=== PATIENT | female | born 1990 | race Hispanic/Latino ===

== ENCOUNTER 2018-11-16 21:28 | Emergency (ER) | payer OTHER | END 2018-11-16 23:31 | disposition home or self-care (01) | LOC: SCSER 21:28 | DX: J18.9 Pneumonia, unspecified organism (principal); D50.9 Iron deficiency anemia, unspecified | CPT/HCPCS: 87804; 99283 ==

== ENCOUNTER 2019-01-24 06:27 | Observation (INO) | payer OTHER ==
[2019-01-24 07:05] LABS: Hemoglobin 6.5 g/dL (12.0-16.0); Mean Corpuscular Hemoglobin 14.1 pg (27.0-31.0); Mean Corpuscular Volume 52.3 fL (78.0-98.0); Mean Platelet Volume 5.6 fL (7.4-10.4); Platelet Count 262 thou/uL (130-400); Red Blood Cell (RBC) Count 4.58 mill/uL (4.20-5.40); White Blood Cell (WBC) Count 7.3 thou/uL (4.8-10.8)
[2019-01-24 07:06] LABS: BHCG - Serum Negative (NEGATIVE); INR-International Normal Ratio 1.1; PTT 28.9 SEC (22.9-36.1); Pregs Control Background? CLEAR/WHITE (CLR/WHITE); Pregs Control Bar Appear? YES (CONTROL BAR); Prothrombin Time 14.3 SEC (12.0-14.7)
[2019-01-24 07:14] LABS: #Basophils 0.1 thou/uL (0.0-0.2); #Eosinphils 0.2 thou/uL (0.0-0.7); #Lymphocytes 1.9 thou/uL (1.20-3.40); #Monocytes 0.5 thou/uL (0.11-0.59); #Neutrophils 4.6 thou/uL (1.40-6.50); %Basophils 1.1 % (0.0-1.0); %Lymphocytes 25.7 % (21.0-51.0); %Monocytes 6.8 % (0.0-10.0); %Neutrophils 63.4 % (42.0-75.0); Elliptocytes MODERATE= 6-15 cells (100X) (0-1/hpf); Hypochromia MARKED = >30 cells (100X) (0-5/hpf); MDiff Complete? YES; Microcytosis MARKED = >30 cells (100X) (0-5/hpf); Ovalocytes SLIGHT = 2-5 cells (100X) (0-1/hpf); Polychromasia SLIGHT = 2-3 cells (100X) (0-2/hpf)
[2019-01-24 07:15] LABS: ALT (SGPT) 14 U/L (8-55); AST (SGOT) 12 U/L (5-34); Albumin 3.7 g/dL (3.5-5.0); Alkaline Phosphatase 60 U/L (40-150); Anion Gap 9 mmol/L (10-20); BUN (Urea Nitrogen) 11 mg/dL (7.0-18.7); Bilirubin, Total 0.5 mg/dL (0.2-1.2); Calc. Creatinine Clearance 0 mL/min (70-130); Calcium 8.4 mg/dL (7.8-10.44); Carbon Dioxide 24 mmol/L (22-29); Chloride 111 mmol/L (98-107); Estimated GFR-MDRD Greater than 90; Globulin 3.4 g/dL (2.4-3.5); Glucose 103 mg/dL (70-105); Potassium 3.7 mmol/L (3.5-5.1); Protein, Total 7.1 g/dL (6.0-8.3); Sodium 140 mmol/L (136-145)
--- NOTE | 2019-01-24 08:42 | RAD ---
FRONTAL RADIOGRAPH CHEST: Date; 01/24/19 COMPARISON: None. HISTORY: Dyspnea and lower extremity swelling. FINDINGS: Mild respiratory motion artifact noted. Midline sternotomy wires are present. Body habitus and portab le technique limit detailed assessment. No pneumothorax, lobar consolidation, or alveolar edema. There is increased density in the right perihilar/suprahilar region which could signify vascular prom inence or could be osseous in nature. PA/lateral imaging of the chest could better evaluate the media stinal contours. IMPRESSION: Limited assessment of the chest demonstrating prominence of the cardiac silhouette and lobulated dens ity in the right perihilar/suprahilar region, for which PA and lateral imaging of the chest is advise d. There is no lobar consolidation or alveolar edema. POS: ROYCE
[2019-01-24 10:26] VITALS: BMI 51.6
[2019-01-24] MEDS ORDERED: diphenhydrAMINE 50 MG CAP PO PRN (10:33)
[2019-01-24] MEDS ORDERED: IRON IVPB SCH (10:45)
[2019-01-24] MEDS ORDERED: SODIUM FERRIC GLUCONATE IVPB SCH (10:45)
[2019-01-24] MEDS ORDERED: SODIUM CHLORIDE 0.9% IVPB SCH (10:45)
--- NOTE | 2019-01-24 11:31 | HP ---
REASON FOR ADMISSION: Anemia, secondary to menorrhagia. HISTORY OF PRESENT ILLNESS: Ms. Woody is a 28-year-old 1, para 0, AB 1, who has a long history of menorrhagia leading to anemia. She presents to the emergency room in [place] complaining of weakness. Upon presentation there, she was found to have a hematocrit of 23.9%, hemoglobin of 6.5. Indices are microcytic, consistent with chronic iron loss including marked hypochromasia and microcytosis and elliptocytosis. Platelets were within normal limits. She is admitted for blood transfusions as well as IV iron therapy and pharmacologic manipulation of menorrhagia. HYPERION ANALYST HISTORY: Miscarriage x1. History of menorrhagia since onset of menses. No history of STDs, on oral contraceptives. 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 PAST SURGICAL HISTORY: D and C, and tetralogy of Fallot repair. ALLERGIES: DENIES. MEDICATIONS: Oral contraceptives. SOCIAL HISTORY: Denies tobacco, alcohol, or drug abuse. FAMILY HISTORY: Noncontributory. REVIEW OF SYSTEMS: Noncontributory. PHYSICAL EXAMINATION: GENERAL: Obese female, in no acute distress. VITAL SIGNS: Temperature 98.5, pulse 76, respirations 20, O2 saturation 98%, and blood pressure 134/92. HEENT: Within normal limits. LUNGS: Clear to auscultation bilaterally. HEART: Regular rate and rhythm. ABDOMEN: Soft and nontender. No rebound or guarding. GENITOURINARY: Vulva without lesions. Vagina, moderate menses. PELVIC: Deferred. EXTREMITIES: Without clubbing, cyanosis, or edema. LABORATORY DATA: The patient had a negative Pap smear with Dr. Fatimah Lam less than 1 month ago. HPV is not noted in the chart. Hematocrit is noted. Blood type is O positive. Antibody negative. RADIOLOGY: Chest x-ray was negative. The patient reports that she has a simple ovarian cyst that is followed by Dr. Lam. She denies pelvic pain at this time and no ultrasound has been done during this hospitalization. IMPRESSION: Menorrhagia, persistent with anemia and iron deficiency secondary to chronic blood loss. PLAN: 1. Transfuse 2 units of PRBCs. 2. IV iron gluconate 500 mg x1. 3. Initiate Lysteda 1300 p.o. t.i.d. 4. Provera 10 mg b.i.d. during hospitalization. 5. Plan for outpatient followup with Dr. Fatimah Lam post discharge. Job ID: [id number] [facility]
[2019-01-24] MEDS ORDERED: Sodium Chloride 0.9% 10 ML ONE (11:42)
[2019-01-24] MEDS: Tranexamic Acid 650 MG TAB PO SCH ×2 (12:09→21:58)
[2019-01-24] MEDS: medroxyPROGESTERone Acetate 5 MG TAB PO SCH ×2 (12:10→21:59)
[2019-01-24] MEDS: Acetaminophen 500 MG TAB PO PRN (16:30)
--- NOTE | 2019-01-25 08:14 | DIS ---
DATE OF ADMISSION: 01/24/2019 DATE OF DISCHARGE: 01/25/2019 TIME OF SERVICE: 0700. PRIMARY ADMISSION DIAGNOSIS: Severe anemia secondary to menorrhagia. SECONDARY DIAGNOSES: Dysfunctional uterine bleeding and iron deficiency anemia. SUMMARY OF HOSPITAL COURSE: The patient was admitted on the for menorrhagia, which was a longstanding history and had resulted in transfusion before. Her hematocrit was 23%. She was tolerating it well. She received 2 units of PRBCs as ordered by the emergency room physician. She also received IV iron 500 mg x1. She was initiated on Lysteda 1300 mg p.o. t.i.d. She had a good response to medical management with significant decrease in her menstrual flow. She is discharged home on the with scheduled followup with her tool grinder operator, Dr. Fatimah Lam, within 1 week. DISCHARGE MEDICATIONS: Include Lysteda. The patient is to reinitiate her oral contraceptives upon discharge. Job ID: [id number]
[2019-01-25] MEDS ORDERED: Iron, Sodium Ferric Gluconate 250 MG in Sodium Chloride 0.9% 100 ML IVPB SCH (09:00)
[2019-01-25] MEDS: medroxyPROGESTERone Acetate 5 MG TAB PO SCH (09:13)
[2019-01-25] MEDS: Tranexamic Acid 650 MG TAB PO SCH (09:14)
[2019-01-25] MEDS: Acetaminophen 500 MG TAB PO PRN (09:23)
[2019-01-25 11:20] VITALS: BP 147/98; TEMP 97.7
== END 2019-01-25 13:20 | disposition home or self-care (01) ==
LOC: SCSER 06:27 → 3SE 09:07
PROVIDERS: ADMIT Obstetrics & Gynecology; ATTEND Obstetrics & Gynecology
DX: N92.0 Excessive and frequent menstruation with regular cycle (principal); D50.0 Iron deficiency anemia secondary to blood loss (chronic); N83.209 Unspecified ovarian cyst, unspecified side; E66.9 Obesity, unspecified; Z68.43 Body mass index [BMI] 50.0-59.9, adult; Z87.74 Personal history of (corrected) congenital malformations of heart and circulatory system; Z79.3 Long term (current) use of hormonal contraceptives
CPT/HCPCS: 36430; 71045; 80053; 83880; 84484; 84703; 85025; 85060; 85379; 85610; 85730; 86850; 86900; 86901; 96365; 96366; G0378; J2916; J7050; P9016

== ENCOUNTER 2019-08-28 01:23 | Emergency (ER) | payer OTHER, SELFPAY ==
[~2019-08-28 01:23] MED LIST: HYDROcodone/Acetaminophen 5/325 mg Tablet ONE
== END 2019-08-28 01:28 | disposition home or self-care (01) ==
LOC: SCSER 01:23
DX: J86.9 Pyothorax without fistula (principal); D50.9 Iron deficiency anemia, unspecified
CPT/HCPCS: 99283